=== PATIENT | female | born 1995 | race Caucasian/White ===

== ENCOUNTER 2016-06-25 16:53 | Emergency (ER) | payer SELFPAY ==
--- NOTE | 2016-06-25 18:53 | EDM.PDOC ---
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 Patient indicates that she had an IUD placed within the month after her last child but that when they verified placement of the IUD it was at that time they informed her that she had any "double uterus" and patient didn't seem to understand that this could have implications with the IUD until she failed to have any menses and started feeling . Patient indicates she did have some spotting approximately 2-4 weeks ago again the date is uncertain per the patient and she was in concerned because she had been told breakthrough bleeding with this type of IUD was not uncommon until she started feeling and she realized that she needed to be evaluated.] Review of systems: As per history of present illness and below otherwise all systems reviewed and negative. Past medical history: As per history of present illness and as reviewed below otherwise noncontributory. Surgical history: As per history of present illness and as reviewed below otherwise noncontributory. Social history: No reported history of drug or alcohol abuse. Family history: As per history of present illness and as reviewed below otherwise noncontributory. Physical exam: HEENT: Atraumatic, normocephalic, pupils reactive, negative for conjunctival pallor or scleral icterus, mucous membranes moist, throat clear, neck supple, nontender, trachea midline. Lungs: Clear to auscultation, breath sounds equal bilaterally, chest nontender. Heart: S1S2, regular, negative for clicks, rubs, or JVD. Abdomen: Soft, nondistended, nontender. Negative for masses or hepatosplenomegaly. Negative for costovertebral tenderness. Pelvis: Stable nontender. Genitourinary: Deferred. Rectal: Deferred. Extremities: Atraumatic, negative for cords or calf pain. Neurovascular unremarkable. Neuro: Awake, alert, oriented. Cranial nerves II through XII unremarkable. Cerebellum unremarkable. Motor and sensory unremarkable throughout. Exam nonfocal. spoke with Dr. Bassett and discussed the results of her ultrasound and he indicated patient can see him in the office Thursday failing that could see him in the office Thursday. Diagnostics: [transvaginal ultrasound, CBC, CMP, hCG, ABO, Rh antibody] Therapeutics: [RhoGAM 300mcg] Impression: [intrauterine , intrauterine IUD] Plan: [followup with Dr. Bassett either Thursday or Thursday] Definitive disposition and diagnosis as appropriate pending reevaluation and review of above. 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: , Other (see below) Other OB/BYN History: "two uteruses" Social & Family History - Family History Family Medical History: Noncontributory - Tobacco Use Smoking Status *Q: Current Every Day Smoker Years of Tobacco use: 13 Packs/Tins Daily: 1 - Caffeine Use Caffeine Use: Reports: None - Recreational Drug Use Recreational Drug Use: No ED ROS GENERAL - Review of Systems Review Of Systems: See Below (the history of present illness) ED EXAM - Physical Exam Exam: See Below (see history of present illness) Course - Vital Signs Last Recorded V/S: Last Vital Signs Temp 36.7 C 06/25/16 17:05 Pulse 97 06/25/16 17:05 Resp 18 06/25/16 17:05 BP 118/66 06/25/16 17:05 Pulse Ox 96 06/25/16 17:05 - Orders/Labs/Meds Orders: Active Orders 24 hr Category Date Time Status OB 1st Tri Sgl 1st Gest [US] Stat Exams 06/25/16 18:52 Taken CULTURE URINE [] Stat Lab 06/25/16 17:49 Received Labs: Laboratory Tests 06/25/16 06/25/16 06/25/16 Range/Units 17:42 17:42 17:42 WBC 10.01 (4.0-11.0) K/uL RBC 5.22 (4.30-5.90) M/uL Hgb 14.7 (12.0-16.0) g/dL Hct 44.2 (36.0-46.0) % MCV 84.7 (80.0-98.0) fL MCH 28.2 (27.0-32.0) pg MCHC 33.3 (31.0-37.0) g/dL RDW Std Deviation 41.1 (28.0-62.0) fl RDW Coeff of Scotty 14 (11.0-15.0) % Plt Count 201 (150-400) K/uL MPV 10.80 (7.40-12.00) fL Neut % (Auto) 67.6 (48.0-80.0) % Lymph % (Auto) 23.8 (16.0-40.0) % [place]ague % (Auto) 6.1 (0.0-15.0) % Eos % (Auto) 2.4 (0.0-7.0) % Baso % (Auto) 0.1 (0.0-1.5) % Neut # (Auto) 6.8 H (1.4-5.7) K/uL Lymph # (Auto) 2.4 (0.6-2.4) K/uL Mont[place] # (Auto) 0.6 (0.0-0.8) K/uL Eos # (Auto) 0.2 (0.0-0.7) K/uL Baso # (Auto) 0.0 (0.0-0.1) K/uL Nucleated RBC % 0.0 /100WBC Nucleated RBCs # 0 K/uL HCG, Quant 49432.7 mIU/mL Urine Color Urine Appearance Urine pH (5.0-8.0) Ur Specific Bandana (1.001-1.035) Urine Protein (NEGATIVE) mg/dL Urine Glucose (UA) (NEGATIVE) mg/dL Urine Ketones (NEGATIVE) mg/dL Urine Occult Blood (NEGATIVE) Urine Nitrite (NEGATIVE) Urine Bilirubin (NEGATIVE) Urine Urobilinogen (<2.0) EU/dL Ur Leukocyte Esterase (NEGATIVE) Urine RBC (0-2/HPF) Urine WBC (0-5/HPF) Ur Epithelial Cells (NONE-FEW) Urine Bacteria (NEGATIVE) Blood Type A NEGATIVE 06/25/16 Range/Units 17:49 WBC (4.0-11.0) K/uL RBC (4.30-5.90) M/uL Hgb (12.0-16.0) g/dL Hct (36.0-46.0) % MCV (80.0-98.0) fL MCH (27.0-32.0) pg MCHC (31.0-37.0) g/dL RDW Std Deviation (28.0-62.0) fl RDW Coeff of Scotty (11.0-15.0) % Plt Count (150-400) K/uL MPV (7.40-12.00) fL Neut % (Auto) (48.0-80.0) % Lymph % (Auto) (16.0-40.0) % [place] % (Auto) (0.0-15.0) % Eos % (Auto) (0.0-7.0) % Baso % (Auto) (0.0-1.5) % Neut # (Auto) (1.4-5.7) K/uL Lymph # (Auto) (0.6-2.4) K/uL Montague # (Auto) (0.0-0.8) K/uL Eos # (Auto) (0.0-0.7) K/uL Baso # (Auto) (0.0-0.1) K/uL Nucleated RBC % /100WBC Nucleated RBCs # K/uL HCG, Quant mIU/mL Urine Color YELLOW Urine Appearance CLEAR Urine pH 6.0 (5.0-8.0) Ur Specific [place] 1.025 (1.001-1.035) Urine Protein NEGATIVE (NEGATIVE) mg/dL Urine Glucose (UA) NEGATIVE (NEGATIVE) mg/dL Urine Ketones NEGATIVE (NEGATIVE) mg/dL Urine Occult Blood NEGATIVE (NEGATIVE) Urine Nitrite NEGATIVE (NEGATIVE) Urine Bilirubin NEGATIVE (NEGATIVE) Urine Urobilinogen 0.2 (<2.0) EU/dL Ur Leukocyte Esterase MODERATE (NEGATIVE) Urine RBC 1-3 (0-2/HPF) Urine WBC 4-6 (0-5/HPF) Ur Epithelial Cells FEW (NONE-FEW) Urine Bacteria FEW (NEGATIVE) Blood Type Meds: Medications Discontinued Medications Generic Name Dose Route Start Last Admin Trade Name Freq PRN Reason Stop Dose Admin Rho Immune Globulin 300 mcg 06/25/16 21:36 Rhophylac IM 06/25/16 21:37 ONETIME ONE Departure - Departure Time of Disposition: 21:41 Disposition: Home, Self-Care 01 Condition: good Clinical Impression: Intrauterine Forms: ED Department Discharge Additional Instructions: The following information is given to patients seen in the emergency department who are being discharged to home. This information is to outline your options for follow-up care. We provide all patients seen in our emergency department with a follow-up referral. The need for follow-up, as well as the timing and circumstances, are variable depending upon the specifics of your emergency department visit. If you don't have a primary care physician on staff, we will provide you with a referral. We always advise you to contact your personal physician following an emergency department visit to inform them of the circumstance of the visit and for follow-up with them and/or the need for any referrals to a consulting specialist. The emergency department will also refer you to a specialist when appropriate. This referral assures that you have the opportunity for follow-up care with a specialist. All of these measure are taken in an effort to provide you with optimal care, which includes your follow-up. Under all circumstances we always encourage you to contact your private physician who remains a resource for coordinating your care. When calling for follow-up care, please make the office aware that this follow-up is from your recent emergency room visit. If for any reason you are refused follow-up, please contact the [facility] Emergency Department at and asked to speak to the emergency department charge nurse. take medication as directed Followup with Dr. Bassett either Thursday or Thursday call first thing tomorrow morning for an appointment if you're unable to reach anybody call first thing Thursday morning for an appointment. It is imperative that you have followup to address this issue they can only be treated by an OB physician [facility] [address] [place] [id number] - My Orders Last 24 Hours: My Active Orders 06/25/16 17:49 CULTURE URINE [RM] Stat 06/25/16 18:52 OB 1st Tri Sgl 1st Gest [US] Stat - Assessment/Plan Last 24 Hours: My Active Orders 06/25/16 17:49 CULTURE URINE [RM] Stat 06/25/16 18:52 OB 1st Tri Sgl 1st Gest [US] Stat
[2016-06-25] MEDS ORDERED: Rho(D) Immune Globulin 300 MCG/2 ML Syringe IM ONE (21:36)
--- NOTE | 2016-06-26 15:30 | US ---
EXAM DATE: 06/25/16 PATIENT'S AGE: 21 Patient: SAJAN QUESADA Facility: [place], [place] Site . Site : 1995 Study: US OB Pelvis [id number]/[id number] 8:52:35 PM Ordering Physician: Doctor Holloway Final Report: INDICATION: Patient with IUD and no menses. TECHNIQUE: Ultrasound OB pelvis transvaginal. Real time lee scale imaging of the pelvis was performed. COMPARISON: None FINDINGS: There is an IUD present along the right aspect of the uterine cavity. Sonographic imaging demonstrates a single intrauterine gestation along the left aspect of the uterine cavity. The embryo demonstrates a regular cardiac rate measuring 115 beats per minute. The embryo`s crown rump length is difficult to measure. The mean gestational sac diameter is 1.3 cm with an estimated gestational age of 6 weeks, 3 days. There is a normal appearing yolk sac. There are no gross abnormalities noted within the embryo at this early state of development. The placenta has not yet developed. The gestational sac has a normal appearance and there is no evidence of a perigestational hemorrhage. The amount of fluid within the sac appears appropriate for gestational age. The cervix is closed. The myometrium appears normal. The ovaries are of normal size. A small amount of ascites noted. IMPRESSION: 1. Single viable intrauterine with an estimated gestational age of 6 weeks, 3 days by mean gestational sac diameter. 2. IUD noted along the right aspect of the uterus. Dictated by Robin Aponte MD @ 06/25/2016 9:19:30 PM Dictated by: Robin Aponte MD @ 06/25/2016 21:19:40 (Electronic Signature) Report Signed by Proxy. JAG
[2016-06-29 11:17] VITALS: BP 112/64
== END 2016-06-25 22:46 | disposition home or self-care (01) ==
LOC: MW.ED 16:53
DX: Z34.91 Encounter for supervision of normal pregnancy, unspecified, first trimester (principal); O99.331 Smoking (tobacco) complicating pregnancy, first trimester; F17.210 Nicotine dependence, cigarettes, uncomplicated
CPT/HCPCS: 36415; 76801; 81001; 84702; 85025; 86850; 86900; 86901; 87086; 96372; 99284; J2790; 99283